=== PATIENT | male | born 1985 | race Caucasian/White ===

== ENCOUNTER 2022-10-07 20:32 | Emergency (ER) | payer OTHER ==
[2022-10-07 21:00] LABS: Absolute Neutrophil Ct (ANC) 5.23 x10^3/uL (1.4-6.9); BASOPHIL % 0.9 % (0.0-0.4); Basophil (Absolute #) 0.08 x10^3/uL (0-0.4); Eosinophil % 2.2 % (0.00-5.0); Eosinophil (Absolute #) 0.19 x10^3/uL (0-0.5); Hemoglobin 14.8 g/dL (12.5-18.0); IMMATURE GRAN # 0.03 x10^3u/L (0.00-0.03); IMMATURE GRAN % 0.3 % (0.00-0.4); Lymphocyte (Absolute #) 2.26 x10^3/uL (1.0-4.6); Lymphocytes % 26.1 % (24.0-44.0); Mean Corpuscular Hemoglobin 28.6 pg (26-32); Mean Corpuscular Hgb Concent. 32.2 g/dL (32-36); Mean Platelet Volume 11.1 fL (7.5-11.0); Monocyte (Absolute #) 0.88 x10^3/uL (0.0-1.3); Monocytes % 10.1 % (0.0-12.0); Neutrophil % 60.4 % (36.0-66.0); Platelet Count 221 x10^3/uL (150-450); Red Blood Count 5.17 x10^6/uL (4.1-5.6); Red Cell Distribution Width 13.1 % (11.5-14.0); White Blood Count 8.7 x10^3/uL (4.0-10.5)
--- NOTE | 2022-10-07 21:10 | ERPHSYRPT ---
- History of Present Illness Time Seen by Provider: 10/07/22 21:17 Historian: patient Exam Limitations: no limitations Patient Subjective Stated Complaint: Chest pain Triage Nursing Assessment: Patient ambulated back to ED and transferred self to bed. Patient A+O X 3. Patient's skin pink, warm and dry. Patient states he has been having chest pain the past couple weeks that has gotten worse today. Patient states he started having chest pain earlier today that went down into his left arm. Patient denies N/V. Lungs clear a/p coleen. Physician History: Patient is a 37-year-old male presents to emergency department for evaluation of chest pain x2 weeks. Patient states chest pain is worse today. Patient states pain rating down his left arm. Patient called his mother as he became concerned. They are here for chest pain evaluation. No associated nausea vomiting or diaphoresis. Patient denies a history of the same. He is otherwise healthy. Symptoms are mild to moderate in intensity. No specific worsening imp roving factors. Patient denies history of the same. Patient chews tobacco he is a non-smoker. Portions of this note were created with voice recognition technology. There may be grammatical, spelling, punctuation or sound alike errors Timing/Duration: week(s) (2 weeks) Activities at Onset: none Quality: aching Location: substernal Chest Pain Radiation: arm Severity of Pain-Max: moderate Severity of Pain-Current: mild Modifying Factors: Improves With: nothing Associated Symptoms: denies symptoms Prior Chest Pain/Cardiac Workup: no prior chest pain Nitro Today/Relief: no nitro taken today Aspirin Treatment Today: no aspirin today Allergies/Adverse Reactions: No Known Drug Allergies Allergy (Unverified 10/07/22 20:34) Home Medications: Bupropion HCl 150 mg Sr [Wellbutrin SR 150 MG] 1 tab PO DAILY 10/07/22 [History] Losartan Potassium 50 mg [Cozaar 50 MG] 1 tab PO DAILY 10/07/22 [History] Hx Influenza Vaccination/Date Given: No Hx Pneumococcal Vaccination/Date Given: No Immunizations Up to Date: Yes Travel Risk - International Travel Have you traveled outside of the country in past 3 weeks: No - Coronavirus Screening Are you exhibiting any of the following symptoms?: No Close contact with a COVID-19 positive Pt in past 14-21 Days: No - Vaccine Status Have you recieved a Covid-19 vaccination: Yes [employer]: [employer] - Vaccination Dates Date of 2cond Vaccination (if applicable): na - Review of Systems Constitutional: No Symptoms, No Fever, No Chills Eyes: No Symptoms Ears, Nose, & Throat: No Symptoms Respiratory: No Symptoms, No Cough, No Dyspnea Cardiac: No Symptoms, No Chest Pain, No Edema, No Syncope Abdominal/Gastrointestinal: No Symptoms, No Abdominal Pain, No Nausea, No Vomiting, No Diarrhea Genitourinary Symptoms: No Symptoms, No Dysuria Musculoskeletal: No Symptoms, No Back Pain, No Neck Pain Skin: No Symptoms, No Rash Neurological: No Symptoms, No Dizziness, No Focal Weakness, No Sensory Changes Psychological: No Symptoms Endocrine: No Symptoms Hematologic/Lymphatic: No Symptoms Immunological/Allergic: No Symptoms All Other Systems: Reviewed and Negative - Past Medical History Pertinent Past Medical History: Yes Neurological History: No Pertinent History ENT History: No Pertinent History Cardiac History: Hypertension Respiratory History: No Pertinent History Endocrine Medical History: No Pertinent History Musculoskeletal History: No Pertinent History GI Medical History: No Pertinent History History: No Pertinent History Psycho-Social History: Anxiety Male Reproductive Disorders: No Pertinent History - Past Surgical History Past Surgical History: Yes Neuro Surgical History: No Pertinent History Cardiac: No Pertinent History Respiratory: No Pertinent History Gastrointestinal: No Pertinent History Genitourinary: No Pertinent History Musculoskeletal: No Pertinent History Male Surgical History: No Pertinent History - Social History Smoking Status: Never smoker Exposure to second hand smoke: Yes Drug Use: none Patient Lives Alone: No - Nursing Vital Signs Nursing Vital Signs: Initial Vital Signs Temperature 96.5 F 10/07/22 20:37 Pulse Rate 85 10/07/22 20:37 Respiratory Rate 17 10/07/22 20:37 Blood Pressure 143/97 10/07/22 20:37 O2 Sat by Pulse Oximetry 100 10/07/22 20:37 Pain Scale Pain Intensity 0 - Physical Exam General Appearance: no apparent distress, alert Eye Exam: PERRL/EOMI, eyes nml inspection Ears, Nose, Throat Exam: normal ENT inspection, TMs normal, pharynx normal, moist mucous membranes Neck Exam: normal inspection, non-tender, supple, full range of motion Respiratory Exam: normal breath sounds, lungs clear, airway intact, No respiratory distress Cardiovascular Exam: regular rate/rhythm, normal heart sounds, normal peripheral pulses Gastrointestinal/Abdomen Exam: soft, No tenderness, No mass Back Exam: normal inspection, No CVA tenderness, No vertebral tenderness Extremity Exam: normal inspection, normal range of motion Neurologic Exam: alert, oriented x 3, cooperative, normal mood/affect, sensation nml, No motor deficits Skin Exam: normal color, warm, dry Lymphatic Exam: No adenopathy SpO2 Interpretation: normal SpO2: 99 O2 Delivery: Room Air - Course Nursing assessment & vital signs reviewed: Yes EKG Interpreted by Me: RATE (79), Sinus Rhythm, NORMAL AXIS, NORMAL INTERVALS - Radiology Exams Chest X-ray Interpretation: Interpreted by me (lung granuloma lungs. Lung barnes otherwise clear. Normal cardiac silhouette. Intact bony thorax) Ordered Tests: Active Orders 24 hr Category Date Time Status Line [employer]sembler [employer] STAT Care 10/07/22 20:40 Active EKG-ER Only STAT Care 10/07/22 20:40 Active IV Insertion STAT Care 10/07/22 20:40 Active Pulse Oximetry (ED) STAT Care 10/07/22 20:40 Active CHEST 1 VIEW (PORTABLE) Stat Exams 10/07/22 22:24 Taken CBC W DIFF Stat Lab 10/07/22 20:56 Completed CMP Stat Lab 10/07/22 20:56 Completed D-DIMER QUANTITATIVE Stat Lab 10/07/22 20:56 Completed NT PRO BNP Stat Lab 10/07/22 20:56 Completed TROPONIN Q4H Lab 10/07/22 20:56 Completed TROPONIN Q4H Lab 10/08/22 00:13 Completed TROPONIN Q4H Lab 10/08/22 04:45 Ordered Medication Summary Discontinued Medications Generic Name Dose Route Start Last Admin Trade Name Jarred PRN Reason Stop Dose Admin Aspirin 324 mg 10/08/22 00:27 10/08/22 00:29 Aspirin 81 Mg Tab.Chew PO 10/08/22 00:28 324 mg STAT ONE Administration Aspirin Confirm 10/08/22 00:30 Aspirin 81 Mg Tab.Chew Administered 10/08/22 00:31 Dose 324 mg .ROUTE .STK-MED ONE Lab/Rad Data: Laboratory Result Diagrams 10/07/22 20:56 10/07/22 20:56 Laboratory Results 10/08/22 10/07/22 10/07/22 Range/Units 00:13 20:56 20:56 WBC (4.0-10.5) x10^3/uL RBC (4.1-5.6) x10^6/uL Hgb (12.5-18.0) g/dL Hct (42-50) % MCV (78-100) fL MCH (26-32) pg MCHC (32-36) g/dL RDW (11.5-14.0) % Plt Count (150-450) x10^3/uL MPV (7.5-11.0) fL Gran % (36.0-66.0) % Immature Gran % (Auto) (0.00-0.4) % Nucleat RBC Rel Count (0.00-0.1) % Eos # (Auto) (0-0.5) x10^3/uL Immature Gran # (Auto) (0.00-0.03) x10^3u/L Absolute Lymphs (auto) (1.0-4.6) x10^3/uL Absolute Monos (auto) (0.0-1.3) x10^3/uL Absolute Nucleated RBC (0.00-0.01) x10^3u/L Lymphocytes % (24.0-44.0) % Monocytes % (0.0-12.0) % Eosinophils % (0.00-5.0) % Basophils % (0.0-0.4) % Absolute Granulocytes (1.4-6.9) x10^3/uL Basophils # (0-0.4) x10^3/uL D-Dimer < 0.19 (0.0-0.50) mg/L Sodium (137-145) mmol/L Potassium (3.5-5.1) mmol/L Chloride (98-107) mmol/L Carbon Dioxide (22-30) mmol/L Anion Gap (5-15) MEQ/L BUN (9-20) mg/dL Creatinine (0.66-1.25) mg/dL Estimated GFR ML/MIN Glucose (74-106) mg/dL Calcium (8.4-10.2) mg/dL Total Bilirubin (0.2-1.3) mg/dL AST (17-59) U/L ALT (0-50) U/L Alkaline Phosphatase (38-126) U/L Troponin I < 0.012 < 0.012 (0.000-0.034) ng/mL NT-Pro-B Natriuret Pep (0-450) pg/mL Serum Total Protein (6.3-8.2) g/dL Albumin (3.5-5.0) g/dL 10/07/22 10/07/22 Range/Units 20:56 20:56 WBC 8.7 (4.0-10.5) x10^3/uL RBC 5.17 (4.1-5.6) x10^6/uL Hgb 14.8 (12.5-18.0) g/dL Hct 46.0 (42-50) % MCV 89.0 (78-100) fL MCH 28.6 (26-32) pg MCHC 32.2 (32-36) g/dL RDW 13.1 (11.5-14.0) % Plt Count 221 (150-450) x10^3/uL MPV 11.1 H (7.5-11.0) fL Gran % 60.4 (36.0-66.0) % Immature Gran % (Auto) 0.3 (0.00-0.4) % Nucleat RBC Rel Count 0.0 (0.00-0.1) % Eos # (Auto) 0.19 (0-0.5) x10^3/uL Immature Gran # (Auto) 0.03 (0.00-0.03) x10^3u/L Absolute Lymphs (auto) 2.26 (1.0-4.6) x10^3/uL Absolute Monos (auto) 0.88 (0.0-1.3) x10^3/uL Absolute Nucleated RBC 0.00 (0.00-0.01) x10^3u/L Lymphocytes % 26.1 (24.0-44.0) % Monocytes % 10.1 (0.0-12.0) % Eosinophils % 2.2 (0.00-5.0) % Basophils % 0.9 (0.0-0.4) % Absolute Granulocytes 5.23 (1.4-6.9) x10^3/uL Basophils # 0.08 (0-0.4) x10^3/uL D-Dimer (0.0-0.50) mg/L Sodium 138 (137-145) mmol/L Potassium 4.0 (3.5-5.1) mmol/L Chloride 103 (98-107) mmol/L Carbon Dioxide 29 (22-30) mmol/L Anion Gap 10.0 (5-15) MEQ/L BUN 21 H (9-20) mg/dL Creatinine 1.35 H (0.66-1.25) mg/dL Estimated GFR > 60.0 ML/MIN Glucose 88 (74-106) mg/dL Calcium 9.8 (8.4-10.2) mg/dL Total Bilirubin 0.50 (0.2-1.3) mg/dL AST 29 (17-59) U/L ALT 43 (0-50) U/L Alkaline Phosphatase 65 (38-126) U/L Troponin I (0.000-0.034) ng/mL NT-Pro-B Natriuret Pep 19.0 (0-450) pg/mL Serum Total Protein 7.2 (6.3-8.2) g/dL Albumin 4.5 (3.5-5.0) g/dL - Progress Progress: improved Air Movement: good Progress Note: 37-year-old male presents to our ED for evaluation of chest pain. Physical exam or review of system essentially nonremarkable. Patient's presenting symptoms were acute to subacute. No significant comorbidities contributing to patient's current symptomology. Complexity of patient's complaint is moderate. Work-up entailed CBC CMP D-dimer BNP troponin chest x-ray. Work-up reveals elevated creatinine. Chest x-ray shows lung granulomas. CBC BMP D-dimer were negative. BNP negative. The results of our testing contributed to the medical decision making. Patient received a dose of aspirin in our ED. No active pain in our ED. No indication for pain medication. No specific consultations. Troponin negative x2. Plan of care discussed with patient. He agrees to follow-up with his primary care doctor within 48 hours for evaluation. Patient has the means to follow-up as discussed. Level of EM service provided was moderate. Complexity of the problem addressed was moderate. Amount and complexity of data reviewed and analyzed is moderate. Risk of complications and/or risk of morbidity/mortality of patient management was low Troponin negative x2. Time spent during discharge of patient was approximately 10 minutes. Patient not having any active symptomology at this time. Heart score History slightly suspicious 0 EKG normal 0 Age less than 45 0 Risk factors hypertension and elevated BMI 1 Initial troponin level negative 0 Heart score of 1 there is low risk for major adverse coronary event. Based on heart score patient may be safely discharged home. Portions of this note were created with voice recognition technology. There may be grammatical, spelling, punctuation or sound alike errors 10/08/22 00:25 Blood Culture(s) Obtained: No Antibiotics given: No Counseled pt/family regarding: lab results, diagnosis, need for follow-up, rad results - Departure Departure Disposition: Home Clinical Impression: Chest pain, Elevated serum creatinine Condition: Stable Critical Care Time: No Referrals: JAYSHREE BUSH NP [Primary Care Provider] - Follow up/PCP as directed Additional Instructions: Discharge/Care Plan CRUZITO BAUM was seen on 10/08/22 in the Emergency Room. The patient was counseled regarding Diagnosis,Lab results, Imaging studies, need for follow up and when to return to the Emergency Room. Prescriptions given: Discharge Note I have spoken with the patient and/or caregivers. I have explained the patient's condition, diagnosis and treatment plan based on the information available to me at this time. I have answered the patient's and/or caregiver's questions and addressed any concerns. The patient and/or caregivers have as good understanding of the patient's diagnosis, condition and treatment plan as can be expected at this point. The vital signs have been stable. The patient's condition is stable and appropriate for discharge from the emergency department. The patient will pursue further outpatient evaluation with the primary care physician or other designated or consulting physician as outlined in the discharge instructions. The patient and/or caregivers are agreeable to this plan of care and follow-up instructions have been explained in detail. The patient and/or caregivers have received these instruction. The patient/and or caregivers are aware that any significant change in condition or worsening of symptoms should prompt an immediate return to this or the closest emergency department or call 911.
[2022-10-07 21:22] LABS: ALBUMIN 4.5 g/dL (3.5-5.0); ALKALINE PHOSPHATASE 65 U/L (38-126); BLOOD UREA NITROGEN 21 mg/dL (9-20); CHLORIDE 103 mmol/L (98-107); Calcium 9.8 mg/dL (8.4-10.2); Carbon Dioxide 29 mmol/L (22-30); Creatinine 1 1.35 mg/dL (0.66-1.25); EST GLOMERULAR FILTRATION RATE > 60.0 ML/MIN; Glucose 88 mg/dL (74-106); SGOT/AST 29 U/L (17-59); SGPT/ALT 43 U/L (0-50); SODIUM 138 mmol/L (137-145); Total Protein 7.2 g/dL (6.3-8.2)
[2022-10-07 23:33] VITALS: BP 137/74
[2022-10-08] MEDS ORDERED: BABY ASPIRIN 81 MG CHEW PO ONE (00:27)
[2022-10-08] MEDS ORDERED: BABY ASPIRIN 81 MG CHEW ONE (00:30)
[2022-10-08 00:45] VITALS: PULSE 74
[2022-10-08 01:01] VITALS: O2SAT 99
--- NOTE | 2022-10-08 08:39 | XRAY ---
Indication: Chest pain. Comparison: April 05, 2014 Portable chest again demonstrates normal heart and lungs with incidental tiny calcified granulomas. Bony thorax intact. No new/acute findings.
== END 2022-10-08 01:05 | disposition home or self-care (01) ==
LOC: ED 20:32
DX: R07.9 Chest pain, unspecified (principal); R79.89 Other specified abnormal findings of blood chemistry; I10 Essential (primary) hypertension; Z79.899 Other long term (current) drug therapy
CPT/HCPCS: 36000; 36415; 71045; 80053; 83880; 84484; 85025; 85379; 93005; 93041; 94760; 99284; A9270-GY